=== PATIENT | female | born 1960 | race Two or more races ===

== ENCOUNTER 2024-10-12 20:24 | Emergency (ER) | payer SELFPAY ==
[2024-10-12 20:27] VITALS: BMI 37.4
[2024-10-12 20:41] VITALS: BP 165/80; PULSE 74; RESP 18; TEMP 37.1; O2SAT 95
--- NOTE | 2024-10-12 20:55 | PD.EDRME ---
Rapid Medical Screening Exam RME Arrival date/time: 10/12/24 20:24 63-year-old female past medical history of hypertension presents emergency department complaining of right-sided headache and cough for 3 days. Chief Complaint: Headache Time Seen by Provider: 10/12/24 20:30 Vital signs: Vital Signs Temperature 98.7 F 10/12/24 20:41 Pulse Rate 74 10/12/24 20:41 Respiratory Rate 18 10/12/24 20:41 Blood Pressure 165/80 H 10/12/24 20:41 Pulse Oximetry (%) 95 10/12/24 20:41 Oxygen Delivery Method Room Air 10/12/24 20:41 Vital signs reviewed by provider: Yes
--- NOTE | 2024-10-12 21:05 | EDNOTE_ITS ---
ED Headache RME/HPI General Chief Complaint: Headache Stated Complaint: Headache 07/10 x 3 day off/on, cough, congestion, Time Seen by Provider: 10/12/24 20:30 Source: patient Arrival date/time: 10/12/24 20:24 63-year-old female past medical history of hypertension presents emergency depa rtment complaining of right-sided headache and cough for 3 days. Patient denies any other associated symptoms. Mode of arrival: ambulatory Limitations: no limitations RME / HPI RME / HPI Narrative: 10/12/24 20:24 63-year-old female past medical history of hypertension presents emergency department complaining of right-sided headache and cough for 3 days. Related Data Previous Rx's ?Medication ?Instructions ?Recorded ibuprofen 600 mg tablet 600 mg PO Q8H PRN pain #20 tabs 10/12/24 Review of Systems Review of Systems Systems Reviewed: All systems reviewed, normal except as documented Constitutional Constitutional: Reports system reviewed and no additional complaints, except as documented, Denies body ache(s), Denies chills, Denies fever(s) and Reports headache(s) Eyes Eyes: Reports system reviewed and no additional complaints, except as documented and Denies change in vision ENT Ears, Nose, Mouth, and Throat: Reports system reviewed and no additional complaints, except as documented, Denies disequilibrium, Denies dizziness, Reports headache(s), Denies sore throat and Denies vertigo Cardiovascular Cardiovascular: Reports system reviewed and no additional complaints, except as documented, Denies chest pain and Denies dyspnea Respiratory Respiratory: Reports system reviewed and no additional complaints, except as documented, Denies chest congestion, Reports cough and Denies dyspnea Gastrointestinal Gastrointestinal: Reports system reviewed and no additional complaints, except as documented, Denies abdominal pain, Denies nausea and Denies vomiting Musculoskeletal Musculoskeletal: Reports system reviewed and no additional complaints, except as documented, Denies abnormal gait and Denies arthralgias Integumentary/Breasts Skin/Breast: Reports system reviewed and no additional complaints, except as documented, Denies erythema, Denies rash and Denies wounds Neurologic Neurologic: Reports system reviewed and no additional complaints, except as documented, Denies abnormal gait, Denies disequilibrium, Denies dizziness, Reports headache(s) and Denies vertigo Past Medical History Social History SMOKING STATUS: Never smoker ED Exam General Limitations: Present no limitations General appearance: Present alert and in no apparent distress Head Head exam: Present atraumatic Eye Eye exam: Present normal appearance, PERRL and EOMI ENT ENT exam: Present normal exam, normal oropharynx and mucous membranes moist Neck Neck exam: Present normal inspection, full ROM and trachea midline Chest Chest inspection: Present normal inspection and symmetric chest wall rise Respiratory Respiratory exam: Present normal lung sounds bilaterally Cardiovascular Cardiovascular exam: Present regular rate, normal rhythm and normal heart sounds Abdominal Exam Abdominal exam: Present soft and normal bowel sounds Extremities Exam Extremities exam: Present normal inspection and full ROM Back Exam Back exam: Present normal inspection and full ROM Neurological Exam Neurological exam: Present alert, oriented X3 and CN II-XII intact Psychiatric Psychiatric exam: Present normal affect and normal mood Skin Skin exam: Present warm, dry, intact and normal color Course Quality Measures none Orders Category Date Time Status Bedside Influenza A&B Antigen Test NOW Care 10/12/24 20:55 Completed Acetaminophen Tab [Tylenol ES Tab] Med 10/12/24 20:55 Discontinued 1,000 mg PO X1 ONE Acetaminophen Tab [Tylenol ES Tab] Med 10/12/24 21:05 Discontinued 1,000 mg PO X1 ONE Ketorolac Inj [Toradol Inj] Med 10/12/24 21:04 Discontinued 30 mg IM X1 ONE Vital Signs Vital signs: Vital Signs Temperature 98.7 F 10/12/24 20:41 Pulse Rate 74 10/12/24 20:41 Respiratory Rate 18 10/12/24 20:41 Blood Pressure 165/80 H 10/12/24 20:41 Pulse Oximetry (%) 95 10/12/24 20:41 Oxygen Delivery Method Room Air 10/12/24 20:41 95% room air within normal limits Headache MDM Narrative MDM Narrative:: 63-year-old female past medical history of hypertension presents emergency department complaining of right-sided headache and cough for 3 days. Patient denies any other associated symptoms. Patient GCS 15 with steady gait. Normal cranial nerve exam. Influenza AMB positive. No adventitious lung sounds on auscultation. Patient data External records reviewed:: None Clinical information provided by:: patient Social determinants that could affect healthcare access:: none Patient has the following chronic illnesses:: Hypertension How is presenting disease/condition affected by chronic disease/condition?: uneffected by Evaluation data The following diagnostics were reviewed and interpreted by me:: lab results Lab and/or radiology exams considered but not ordered:: Ordered Interpretation Summary: Interpreted by me Medications / Prescriptions Medications or Prescriptions considered but not ordered:: Ordered Medication administrations:: Medication Administration History Discontinued Medications Acetaminophen (Acetaminophen 500 Mg Tablet) 1,000 mg PO X1 ONE Stop: 10/12/24 20:56 Acetaminophen (Acetaminophen 500 Mg Tablet) 1,000 mg PO X1 ONE Stop: 10/12/24 21:06 Ketorolac Tromethamine (Ketorolac Inj 60 Mg/2 Ml Vial) 30 mg IM X1 ONE Stop: 10/12/24 21:05 Given Consultations Consultation(s) initiated? (list below): No Diagnosis Differential diagnosis headache: migraine, tension headache, headache and sinusitis Most likely diagnosis given after review of the tests above:: Influenza Admission Indicated Admission indicated?: not indicated Admission Request Was there a request for admission?: No Disposition Plan Disposition Plan: Discharge Discharge Attestation Discharge Attestation: The patient and all family members were given an opportunity to ask questions and understood the discharge instructions. Discharge instructions specifically effects, indications for sooner follow up or return to the emergency department, and the expected course of current diagnosis. Patient condition: Stable Discharge Plan Plan Patient Disposition: HOME (Self Care) Disposition Comment: Stable Prescriptions/Referrals Prescriptions/Med Rec: New ibuprofen 600 mg tablet 600 mg PO Q8H PRN (Reason: pain) Qty: 20 0RF Problem List Clinical Impression: Influenza Patient/Caregiver Discharge Instructions Education Materials: ED Influenza (Adult) Additional Instructions: Drink plenty of fluids and get plenty of rest. Take ibuprofen or Tylenol as needed for fever or pain. Follow-up with primary care provider in 2 to 3 days. Return to emergency department for any worsening symptoms or as needed. Print Language: Kyrgyz Stand Alone Forms: Susan Award Info., Patient Portal Info Letter PA/MORTGAGE LOAN PROCESSING CLERK Supervising Physician PA/MORTGAGE LOAN PROCESSING CLERK Supervising Physician: Dr. Mcmillan
[2024-10-12] MEDS: ACETAMINOPHEN 500 MG TABLET 1000 MG PO (21:08)
[2024-10-12] MEDS: KETOROLAC INJ 60 MG/2 ML VIAL 30 MG IM (21:10)
== END 2024-10-12 21:16 | disposition home or self-care (01) ==
PROVIDERS: Emergency Provider Emergency Medicine
DX: J11.1 Influenza due to unidentified influenza virus with other respiratory manifestations (principal); I10 Essential (primary) hypertension
CPT/HCPCS: 87400; 96372; 99283; J1885; A9270